=== PATIENT | female | born 1995 | race Caucasian/White ===

== ENCOUNTER 2017-09-13 17:20 | Emergency (ER) | payer BC ==
--- NOTE | 2017-09-13 17:53 | Emergency Department Record ---
History of Present Illness - General Chief Complaint: Animal Bite Stated Complaint: CAT BITE RT THUMB/RIGHT BROW Time Seen by Provider: 09/13/17 17:48 Source: Patient, RN notes reviewed Mode of Arrival: Ambulatory - History of Present Illness Initial Comments: cat bite and it was a kitten and they want to keep the cat and it is in a cage right now. she has puncture wounds on her thumb and scratches on her face and arms MD Complaint: Animal bite Onset/Timin -: Minutes(s) Animal: Cat Description: Household pet Mechanism: Bite, Scratch Associated Symptoms: None - Related Data Home Medications Medication Instructions Recorded Confirmed Last Taken Dextroamphetamine/Amphetamine 10 mg PO DAILY 09/13/17 09/13/17 Unknown [Adderall] Dextroamphetamine/Amphetamine 15 mg PO DAILY 09/13/17 09/13/17 Unknown [Adderall] Previous Rx's Medication Instructions Recorded Amoxicillin/Potassium Clav 1 each PO TID #30 tablet 09/13/17 [Augmentin 500-125 Tablet] Allergies Allergy/AdvReac Type Severity Reaction Status Date / Time No Known Drug Allergies Allergy Verified 09/13/17 17:44 Travel Screening - Travel/Exposure Within Last 30 Days Have you traveled within the last 30 days?: No - Travel/Exposure Within Last Year Have you traveled outside the [place] in the last year?: No - Additonal Travel Details Have you been exposed to anyone with a communicable illness?: No - Travel Symptoms Symptom Screening: None Review of Systems Reviewed: No additional complaints except as noted below Constitutional: Reports: As per HPI. Denies: Chills, Fever, Malaise, Night sweats, Weakness, Weight change Eyes: Reports: As per HPI. Denies: Eye discharge, Eye pain, Photophobia, Vision change ENT: Reports: As per HPI. Denies: Congestion, Dental pain, Ear pain, Epistaxis , Hearing loss, Throat pain Respiratory: Reports: As per HPI. Denies: Cough, Dyspnea, Hemoptysis, Stridor, Wheezes Cardiovascular: Reports: As per HPI. Denies: Arrhythmia, Chest pain, Dyspnea on exertion, Edema, Murmurs, Orthopnea, Palpitations, Paroxysmal nocturnal dyspnea, Rheumatic Fever, Syncope Endocrine: Reports: As per HPI. Denies: Fatigue, Heat or cold intolerance, Polydipsia, Polyuria Gastrointestinal: Reports: As per HPI. Denies: Abdominal pain, Constipation, Diarrhea, Hematemesis, Hematochezia, Melena, Nausea, Vomiting Genitourinary: Reports: As per HPI. Denies: Abnormal menses, Discharge, Dyspareunia, Dysuria, Frequency, Hematuria, Incontinence, Retention, Urgency Musculoskeletal: Reports: As per HPI. Denies: Arthralgia, Back pain, Gout, Joint swelling, Myalgia, Neck pain Skin: Reports: As per HPI. Denies: Bruising, Change in color, Change in hair/ nails, Lesions, Pruritus, Rash Neurological: Reports: As per HPI. Denies: Abnormal gait, Confusion, Headache, Numbness, Paresthesias, Seizure, Tingling, Tremors, Vertigo, Weakness Psychiatric: Reports: As per HPI. Denies: Anxiety, Auditory hallucinations, Depression, Homicidal thoughts, Suicidal thoughts, Visual hallucinations Hematological/Lymphatic: Reports: As per HPI. Denies: Anemia, Blood Clots, Easy bleeding, Easy bruising, Swollen glands Past Medical History - SOCIAL HISTORY Smoking Status: Never smoker Alcohol Use: None Drug Use: None - RESPIRATORY Hx Respiratory Disorders: Yes Hx Asthma: Yes - CARDIOVASCULAR Hx Cardio Disorders: No - NEURO Hx Neuro Disorders: Yes - GI Hx GI Disorders: No - Hx Genitourinary Disorders: No - ENDOCRINE Hx Endocrine Disorders: No - MUSCULOSKELETAL Hx Musculoskeletal Disorders: No - PSYCH Hx Psych Problems: Yes Comment:: ADHD - HEMATOLOGY/ONCOLOGY Hx Hematology/Oncology Disorders: Yes Hx Anemia: Yes Family Medical History Any Significant Family History?: No Physical Exam - General General Appearance: Alert, Oriented x3, Cooperative, No acute distress - Head Head exam: Normal inspection - Eye Eye exam: Normal appearance, PERRL Pupils: Normal accommodation - ENT ENT exam: Normal exam, Mucous membranes moist, Normal external ear exam, Normal orophraynx, TM's normal bilaterally Ear exam: Normal external inspection. negative: External canal tenderness Nasal Exam: Normal inspection. negative: Discharge, Sinus tenderness Mouth exam: Normal external inspection, Tongue normal Teeth exam: Normal inspection. negative: Dental caries Throat exam: Normal inspection. negative: Tonsillar erythema, Tonsillar exudate - Neck Neck exam: Normal inspection, Full ROM. negative: Tenderness - Respiratory Respiratory exam: Normal lung sounds bilaterally. negative: Respiratory distress - Cardiovascular Cardiovascular Exam: Regular rate, Normal rhythm, Normal heart sounds - GI/Abdominal GI/Abdominal exam: Soft, Normal bowel sounds. negative: Tenderness - Rectal Rectal exam: Deferred - exam: Deferred - Extremities Extremities exam: Normal inspection, Full ROM, Normal capillary refill, Other ( right thumb puntures). negative: Tenderness - Back Back exam: Reports: Normal inspection, Full ROM. Denies: Muscle spasm, Rash noted, Tenderness - Neurological Neurological exam: Alert, Normal gait, Oriented X3, Reflexes normal - Psychiatric Psychiatric exam: Normal affect, Normal mood - Skin Skin exam: Dry, Intact, Normal color, Warm Course - Reevaluation(s) Reevaluation #1: discussed if it gets infected will need to remove the nail and she understands high percentage of infection and will start antibiotics 09/13/17 17:50 Reevaluation #2: animal control contacted 09/13/17 18:01 Disposition Clinical Impression: Cat bite Qualifiers: Encounter type: initial encounter Qualified Code(s): W55.01XA - Bitten by cat, initial encounter Disposition: Home, Self-Care Condition: (1) Good Instructions: Animal Bite (ED) Additional Instructions: follow up with family Dr or return to ED if worse Prescriptions: Amoxicillin/Potassium Clav [Augmentin 500-125 Tablet] 1 each PO TID #30 tablet Forms: Patient Portal Access Time of Disposition: 17:56 Quality - Quality Measures Quality Measures: N/A - Blood Pressure Screening Does Patient Have Any of the Following: No Blood Pressure Classification: Normal BP Reading Systolic Measurement: 105 Diastolic Measurement: 69 Screening for High Blood Pressure: < Normal BP, F/U Not Required > [G8783]
[2017-09-13] MEDS ORDERED: AMOX TR/POT CLAV. 500MG/125MG TABLET PO ONE (17:57)
== END 2017-09-13 18:34 | disposition home or self-care (01) ==
LOC: ER 17:20
DX: S61.031A Puncture wound without foreign body of right thumb without damage to nail, initial encounter (principal); S00.212A Abrasion of left eyelid and periocular area, initial encounter; S40.812A Abrasion of left upper arm, initial encounter; S40.811A Abrasion of right upper arm, initial encounter; W55.01XA Bitten by cat, initial encounter; W55.03XA Scratched by cat, initial encounter; Y92.009 Unspecified place in unspecified non-institutional (private) residence as the place of occurrence of the external cause
CPT/HCPCS: 99283

== ENCOUNTER 2017-12-31 20:33 | Emergency (ER) | payer BC ==
[2017-12-31] MEDS ORDERED: IBUPROFEN 600 MG TABLET PO ONE (20:50)
--- NOTE | 2017-12-31 20:55 | Emergency Department Record ---
History of Present Illness - General Chief Complaint: Fever Stated Complaint: FEVER,CHEST/SINUS CONGESTION,SORE THROAT Time Seen by Provider: 12/31/17 20:50 Source: Patient Mode of Arrival: Ambulatory Limitations: No limitations - History of Present Illness Initial Comments: 22 yo female presents with cough that feels productive, some tender cervical glands, muscle aches and subjective fevers. She states she has a history of Raynaud's Syndrome as well. She woke up about 4 days ago with some stiffness in the neck. She then developed a cough that she can feel is productive. She has some body aches as well. Her Raynaud's symptoms in her hands seems a little worse. No nausea or vomiting. No diarrhea. No rash. She has not taken anything for the pain, fever, or aches. MD Complaint: Fever, Other -: Days(s) (4) Context: Other Associated Symptoms: Cough, Myalgias Treatments Prior to Arrival: None - Related Data Previous Rx's Medication Instructions Recorded Azithromycin [Zithromax] 250 mg PO DAILY #4 tablet 12/31/17 Allergies Allergy/AdvReac Type Severity Reaction Status Date / Time No Known Drug Allergies Allergy Verified 09/13/17 17:44 Review of Systems Constitutional: Reports: Fever. Denies: Chills, Malaise, Weakness Eyes: Denies: Eye discharge, Eye pain, Photophobia, Vision change ENT: Reports: Congestion, Throat pain. Denies: Dental pain, Ear pain Respiratory: Reports: Cough. Denies: Dyspnea, Hemoptysis, Stridor, Wheezes Cardiovascular: Denies: Chest pain, Palpitations, Syncope Endocrine: Denies: Fatigue, Polydipsia, Polyuria Gastrointestinal: Denies: Abdominal pain, Diarrhea, Nausea, Vomiting Genitourinary: Denies: Dysuria, Urgency Musculoskeletal: Reports: As per HPI, Neck pain (4 days). Denies: Arthralgia, Back pain, Myalgia Skin: Denies: Bruising, Change in color, Rash Neurological: Denies: Abnormal gait, Confusion, Headache, Numbness, Paresthesias , Seizure, Tingling, Tremors, Vertigo, Weakness Psychiatric: Denies: Anxiety Hematological/Lymphatic: Reports: Swollen glands. Denies: Easy bleeding, Easy bruising Past Medical History - SOCIAL HISTORY Smoking Status: Never smoker Drug Use: None - RESPIRATORY Hx Respiratory Disorders: Yes Hx Asthma: Yes - CARDIOVASCULAR Hx Cardio Disorders: No - NEURO Hx Neuro Disorders: Yes - GI Hx GI Disorders: No - Hx Genitourinary Disorders: No - ENDOCRINE Hx Endocrine Disorders: No - MUSCULOSKELETAL Hx Musculoskeletal Disorders: No - PSYCH Hx Psych Problems: Yes Comment:: ADHD - HEMATOLOGY/ONCOLOGY Hx Hematology/Oncology Disorders: Yes Hx Anemia: Yes Physical Exam - General General Appearance: Alert, Oriented x3, Cooperative, No acute distress, Other ( Well appearing, non toxic in appearance) Limitations: No limitations - Head Head exam: Atraumatic, Normal inspection Head exam detail: negative: Abrasion, Contusion, Hematoma - Eye Eye exam: Normal appearance, PERRL. negative: Conjunctival injection, Scleral icterus - ENT ENT exam: Normal exam, Mucous membranes moist, Normal orophraynx, TM's normal bilaterally Ear exam: Normal external inspection Nasal Exam: Discharge (mild clear) Mouth exam: Normal external inspection Teeth exam: Normal inspection Throat exam: Normal inspection, Tonsillar erythema, Tonsillomegaly, Tonsillar exudate. negative: R peritonsillar mass, L peritonsillar mass - Neck Neck exam: Normal inspection, Tenderness (tender paraspinal with good ROM). negative: Meningismus - Respiratory Respiratory exam: Normal lung sounds bilaterally. negative: Respiratory distress, Rhonchi, Stridor, Wheezes - Cardiovascular Cardiovascular Exam: Regular rate, Normal rhythm, Normal heart sounds - GI/Abdominal GI/Abdominal exam: Soft. negative: Tenderness - Rectal Rectal exam: Deferred - exam: Deferred - Extremities Extremities exam: Normal inspection. negative: Tenderness - Back Back exam: Reports: Normal inspection, Full ROM. Denies: CVA tenderness (R), CVA tenderness (L), Muscle spasm, Paraspinal tenderness, Tenderness, Vertebral tenderness - Neurological Neurological exam: Alert, CN II-XII intact, Normal gait, Oriented X3. negative : Abnormal gait, Altered - Psychiatric Psychiatric exam: Normal affect, Normal mood - Skin Skin exam: Dry, Intact, Normal color, Warm. negative: Abrasion, Cyanosis, Diaphoretic, Erythema Course Vital Signs 12/31/17 20:39 Temperature 98.6 F Pulse Rate [ 75 Pulse Ox Probe] Respiratory 24 Rate Blood Pressure 127/85 [Left Arm] Pulse Ox 100 - Reevaluation(s) Reevaluation #1: 12/31/17 21:31 The Influenza is negative The CBC demonstrates a WBC count of 13.2, no left shift The CMP is normal The strep is normal 12/31/17 21:48 The patient is non ill appearing, non toxic in appearance She has some neck pain but her clinical presentation is not of someone acute ill or with meningitis. I explained the way this is diagnosed through a lumbar puncture. Her vitals, labs, and examination do not indicate that the risk vs benefit of an LP is indicated at this time. She agrees with this and does not request or consent to an LP. We discussed home care, reasons to return, and close follow up Medical Decision Making - Lab Data Result diagrams: 12/31/17 20:57 12/31/17 20:57 Disposition Disposition: Discharge Clinical Impression: Myalgia, Bronchitis Disposition: Home, Self-Care Condition: (1) Good Additional Instructions: You may take Tylenol and Motrin as directed for pain or discomfort Call your doctor for close follow up Return for a recheck if worse or any new concerns Prescriptions: Azithromycin [Zithromax] 250 mg PO DAILY #4 tablet Forms: Patient Portal Access Time of Disposition: 21:33 Quality - Quality Measures Quality Measures: N/A - Blood Pressure Screening Does Patient Have Any of the Following: No Blood Pressure Classification: Pre-Hypertensive BP Reading Systolic Measurement: 125 Diastolic Measurement: 74 Screening for High Blood Pressure: < Pre-Hypertensive BP, F/U Documented > [ G8950] Pre-Hypertensive Follow-up Interventions: Referral to alternative/primary care provider.
[2017-12-31 21:10] LABS: BASO % 0.2 % (0-6); EOS % 0.5 % (0-6); GRAN % 79.5 % (47-80); HEMATOCRIT 38.1 % (35.0-47.0); HEMOGLOBIN 12.6 gm/dl (11.6-16.0); LYMPH % 14.2 % (16-45); MEAN CELL VOLUME 94.8 fl (81-97); MEAN CORPUSCULAR HEMOGLOBIN 31.3 pg (27-33); MEAN CORPUSCULAR HGB CONC 33.1 g/dl (32-36); MEAN PLATELET VOLUME 9.7 fl (7.4-10.4); MONO % 5.6 % (0-9); PLATELET COUNT 296 K/uL (130-400); RED BLOOD COUNT 4.02 M/uL (3.80-5.40); RED CELL DISTRIBUTION WIDTH 12.9 % (11.5-14.5); WHITE BLOOD COUNT W/O DIFF 13.3 K/uL (4.2-12.2)
[2017-12-31 21:17] LABS: INFLUENZA A NEGATIVE (NEGATIVE); INFLUENZA B NEGATIVE (NEGATIVE)
[2017-12-31 21:18] LABS: BLOOD UREA NITROGEN 10 mg/dL (6-20); CREATININE 0.7 mg/dL (0.5-0.9); EST GLOMERULAR FILTRATION RATE > 60 mL/min
[2017-12-31 21:19] LABS: TOTAL PROTEIN 7.6 g/dL (6.6-8.7)
[2017-12-31 21:21] LABS: GLUCOSE,RANDOM 93 mg/dL (74-109)
[2017-12-31 21:23] LABS: ALB/GLOB RATIO 1.6 (1.1-1.8); ALBUMIN 4.7 g/dL (4.0-5.0); ALKALINE PHOSPHATASE 52 U/L (35-104); ALT/SGPT 12 U/L (<33); AST/SGOT 16 U/L (10.0-35.0)
[2017-12-31] MEDS ORDERED: AZITHROMYCIN 500 MG TABLET PO ONE (21:33)
== END 2017-12-31 22:01 | disposition home or self-care (01) ==
LOC: ER 20:33
DX: J20.9 Acute bronchitis, unspecified (principal); M79.12 Myalgia of auxiliary muscles, head and neck
CPT/HCPCS: 80053; 85025; 87400; 87880; 99283